=== PATIENT | male | born 1985 | race Caucasian/White ===

== ENCOUNTER 2017-08-16 19:02 | Emergency (ER) | payer SELFPAY ==
[2017-08-16 19:22] VITALS: BP 138/89; TEMP 98.5
--- NOTE | 2017-08-16 19:33 | RAD ---
EXAM DESCRIPTION: Chest,2 Views CLINICAL HISTORY:32 years Male, possible pecan particle aspiration Comparison: None FINDINGS: No focal lung consolidation. No pleural effusion. No pneumothorax. Cardiac and mediastinal silhouette is unremarkable. No acute osseous abnormality. Soft tissues are unremarkable. IMPRESSION: No acute findings. No focal lung consolidation. No radiopaque foreign body. Electronically signed by: Salazar Muñoz MD 08/16/2017 7:32 PM CDT
[2017-08-16] MEDS ORDERED: CLINDAMYCIN HCL CAP 150 MG CAP PO ONE (19:35)
--- NOTE | 2017-08-16 19:49 | ED.PDOC ---
History of Present Illness - General Chief Complaint: ENT Problem Stated Complaint: foreign object in throat Time Seen by Provider: 08/16/17 19:18 Source: patient Exam Limitations: no limitations - History of Present Illness Initial Comments: The patient is a 32-year-old male presenting to the emergency room secondary to an episode of aspiration. The patient apparently was eating pecans when he inhaled a particle of it. He immediately started choking and gagging. He reports that he threw up 3 times. He reports that initially he had some problems talking and was hoarse but that has resolved. He is feeling much better now but has decided to show up for evaluation. No shortness of breath. No chest pain. Lungs are clear. He is currently in no distress. Timing/Duration: 1/2 hour Severity: moderate Improving Factors: nothing Worsening Factors: nothing Associated Symptoms: denies symptoms Allergies/Adverse Reactions: Allergies NO KNOWN ALLERGY Allergy (Verified 08/16/17 19:15) Home Medications: Ambulatory Orders Clindamycin HCl 300 mg PO Q8H #14 cap 08/16/17 Review of Systems - Review of Systems Constitutional: States: no symptoms reported EENTM: States: no symptoms reported Respiratory: States: see HPI Cardiology: States: no symptoms reported Gastrointestinal/Abdominal: States: no symptoms reported Genitourinary: States: no symptoms reported Musculoskeletal: States: no symptoms reported Skin: States: no symptoms reported Neurological: States: no symptoms reported Endocrine: States: no symptoms reported All other Systems: No Change from Baseline Past Medical History (General) - Patient Medical History Hx Asthma: No Hx Cardiac Disorders: No Hx Hypertension: No Hx Diabetes: No Surgical History: no surgical history - Vaccination History Hx Tetanus, Diphtheria Vaccination: No Hx Influenza Vaccination: No - Social History Hx Tobacco Use: Yes Years Tobacco Use: 10 Hx Alcohol Use: No Family Medical History - Family History Father Hx Cardiac Disease: Yes Hx Family Diabetes: Yes Physical Exam - Physical Exam General Appearance: Alert, Anxious, No apparent distress Eye Exam: bilateral normal Ears, Nose, Throat: hearing grossly normal, normal ENT inspection, normal pharynx, other - examination of the posterior oropharynx with a dental mirror shows no evidence of any obvious foreign body around the vocal cords Neck: non-tender, full range of motion, supple Respiratory: lungs clear, normal breath sounds, no respiratory distress, no accessory muscle use Cardiovascular/Chest: normal peripheral pulses, regular rate, rhythm, no edema Peripheral Pulses: radial,right: 2+, radial,left: 2+, dorsalis pedis,right: 2+, dorsalis pedis,left: 2+ Gastrointestinal/Abdominal: non tender, soft Rectal Exam: deferred Back Exam: normal inspection Extremity: normal range of motion, non-tender, normal inspection, no pedal edema , normal capillary refill 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 It is uncertain whether the patient got up all the pieces. He is in no respiratory distress currently. No evidence of any foreign body in the posterior oropharynx upon inspection currently. Chest x-ray shows no evidence of any obvious foreign body and no significant infiltrate or pneumothorax. The patient will be placed on clindamycin 3 times daily for the next 5 days for the possibility of development of an aspiration pneumonia. The patient will be discharged home. He needs to follow-up with his primary care doctor early next week. ER warnings were given for any worsening. Departure - Departure Clinical Impression: Aspiration into airway Qualifiers: Encounter type: initial encounter Qualified Code(s): T17.908A - Unspecified foreign body in respiratory tract, part unspecified causing other injury, initial encounter Disposition: Discharge to Home or Self Care Condition: Fair Departure Forms: ED Discharge - Pt. Copy, Patient Portal Self Enrollment Instructions: DI for Aspiration Pneumonia Diet: regular diet Activity: increase activity as tolerated Prescriptions: Clindamycin HCl 300 mg PO Q8H #14 cap Home Medications: Ambulatory Orders Clindamycin HCl 300 mg PO Q8H #14 cap 08/16/17 Additional Instructions: the patient is a 32-year-old male presenting to the emergency room after an episode of aspirating particles of a pecan. It is uncertain whether the patient got up all the pieces. He is in no respiratory distress currently. No evidence of any foreign body in the posterior oropharynx upon inspection currently. Chest x-ray shows no evidence of any obvious foreign body and no significant infiltrate or pneumothorax. The patient will be placed on clindamycin 3 times daily for the next 5 days for the possibility of development of an aspiration pneumonia. The patient will be discharged home. He needs to follow-up with his primary care doctor early next week. ER warnings were given for any worsening.
[2017-08-16 20:09] VITALS: O2SAT 97
== END 2017-08-16 20:02 | disposition home or self-care (01) ==
LOC: ER 19:02
DX: T17.928A Food in respiratory tract, part unspecified causing other injury, initial encounter (principal); Z87.891 Personal history of nicotine dependence; X58.XXXA Exposure to other specified factors, initial encounter